=== PATIENT | female | born 1955 | race Caucasian/White ===

== ENCOUNTER 2022-07-25 08:10 | Outpatient (REF) | payer MEDICARE, SELFPAY ==
[2022-07-25 11:23] LABS: MANUAL DIFF FLAG NO
[2022-07-25 11:40] LABS: Basophils Absolute Auto 0.1 X10*3/uL (0.0-0.2); Eosinophils Absolute Auto 0.2 X10*3/uL (0.0-0.4); Eosinophils Percent Auto 3.6 % (0-4); Hematocrit 40.3 % (37.0-47.0); Hemoglobin 13.5 g/dl (12.0-16.0); Imm Gran Abs Auto 0.02 X10*3/uL (0.00-0.03); Imm Gran Pct Auto 0.3 % (0.0-0.4); Lymphocytes Absolute Auto 2.6 X10*3/uL (1.2-4.9); Lymphocytes Percent Auto 44.8 % (20-40); Mean Corpuscular HGB Conc 33.5 g/dl (31.0-35.0); Mean Corpuscular Hemoglobin 30.3 pg (27.0-33.0); Mean Corpuscular Volume 90.4 fL (80.0-98.0); Mean Platelet Volume 10.2 fL (9.4-12.3); Monocytes Absolute Auto 0.5 X10*3/uL (0.1-1.2); Monocytes Percent Auto 8.8 % (2-11); Neutrophils Absolute Auto 2.4 x10*3/uL (2.0-8.3); Neutrophils Percent Auto 41.5 % (45-73); Platelet Count 396 X10*3/uL (160-400); Red Blood Count 4.46 X10*6/uL (4.20-5.50); Red Cell Distribution Width 12.8 % (11.0-16.0); White Blood Count 5.8 X10*3/uL (4.8-10.8)
[2022-07-25 11:49] LABS: Appearance Urine Clear; Color Urine Yellow; Glucose Urine UA Negative (Negative); Leukocyte Esterase Urine Moderate (2+) (Negative); Nitrite Urine Negative (Negative); PH 5.5 (5.0-9.0); UMIC TRIGGER UA YES; Urine Blood Negative (Negative); Urine Ketones Negative (Negative); Urine Protein Negative (Neg-Trace)
[2022-07-25 11:58] LABS: Bacteria Urine None Seen (None Seen); Hyaline Casts Urine 0-2 /LPF (0-2); RBC Urine 0-2 /HPF (0-2); Squamous Epithelial Cell Urine 0-2 /HPF (0-2); WBC Urine 0-5 /HPF (0-5)
[2022-07-25 12:18] LABS: Alanine Aminotransferase 23 U/L (0-31); Albumin Level 4.2 g/dL (3.5-5.0); Alkaline Phosphatase 104 U/L (39-117); Anion Gap 10 (12-20); Aspartate Amino Transferase 19 U/L (5-31); Bilirubin Total 0.7 mg/dL (0.0-1.0); Blood Urea Nitrogen 12 mg/dL (9-16); Calcium 9.7 mg/dL (8.4-10.2); Carbon Dioxide 28 mmol/L (22-29); Chloride 107 mmol/L (96-108); Cholesterol 289 mg/dL; Estimated Glomerular Filt Rate > 60; Glucose Fasting 101 mg/dL (60-99); HDL Cholesterol 47 mg/dL; LDL Cholesterol Calculated 213 mg/dl; Potassium 4.8 mmol/L (3.3-5.1); Sodium 140 mmol/L (135-145); Triglycerides 145 mg/dL; Vitamin D 25-OH Total 36.1 ng/mL (>30)
== END 2022-07-25 08:11 | disposition home or self-care (01) ==
LOC: HO.HMGCLDS 08:10
PROVIDERS: PCP Internal Medicine; Visit Provider Internal Medicine
DX: Z00.00 Encounter for general adult medical examination without abnormal findings (principal); M85.80 Other specified disorders of bone density and structure, unspecified site; E55.9 Vitamin D deficiency, unspecified; E03.9 Hypothyroidism, unspecified
CPT/HCPCS: 36415; 80053; 80061; 81001; 82306; 85025

== ENCOUNTER 2022-11-21 07:55 | Outpatient (REF) | payer MEDICARE, SELFPAY ==
[2022-11-21 11:49] LABS: Cholesterol 286 mg/dL (<200); HDL Cholesterol 47 mg/dL (>40); LDL Cholesterol Calculated 208 mg/dL (<100); Triglycerides 156 mg/dL (<150)
== END 2022-11-21 07:56 | disposition home or self-care (01) ==
LOC: HO.HMGCLDS 07:55
PROVIDERS: PCP Internal Medicine; Visit Provider Internal Medicine
DX: E78.5 Hyperlipidemia, unspecified (principal)
CPT/HCPCS: 36415; 80061

== ENCOUNTER 2023-02-10 08:03 | Outpatient (REF) | payer MEDICARE, SELFPAY ==
[2023-02-10 11:47] LABS: Alanine Aminotransferase 19 U/L (0-31); Alkaline Phosphatase 96 U/L (39-117); Anion Gap 10 (12-20); Aspartate Amino Transferase 17 U/L (5-31); Bilirubin Total 0.5 mg/dL (0.0-1.0); Blood Urea Nitrogen 16 mg/dL (9-16); Calcium 9.3 mg/dL (8.4-10.2); Carbon Dioxide 27 mmol/L (22-29); Chloride 107 mmol/L (96-108); Cholesterol 210 mg/dL (<200); Estimated Glomerular Filt Rate > 60; Glucose Fasting 101 mg/dL (60-99); HDL Cholesterol 45 mg/dL (>40); LDL Cholesterol Calculated 137 mg/dL (<100); Potassium 4.2 mmol/L (3.3-5.1); Sodium 140 mmol/L (135-145); Total Protein 7.1 g/dL (6.5-8.0); Triglycerides 144 mg/dL (<150)
== END 2023-02-10 08:04 | disposition home or self-care (01) ==
LOC: HO.HMGCLDS 08:03
PROVIDERS: PCP Internal Medicine; Visit Provider Internal Medicine
DX: E78.5 Hyperlipidemia, unspecified (principal)
CPT/HCPCS: 36415; 80053; 80061

== ENCOUNTER 2023-06-05 13:25 | Outpatient (AMB) | payer MEDICARE, SELFPAY ==
[2023-06-05 13:29] VITALS: BP 130/90; PULSE 80; TEMP 36.4; O2SAT 98; BMI 29.9
--- NOTE | 2023-06-05 13:29 | AM.OFFWIN_ITS ---
Intake Vital Signs 06/05/23 13:29 Height 4 ft 10 in Weight 143 lb BMI 29.9 BP 130/90 H Blood Pressure Location Lt brachial Position Sitting Pulse 80 Pulse Source Pulse Oximeter Temp 97.5 F Temp Source Temporal Artery Scan Pulse Oximetry (%) 98 Oxygen Delivery Method Room Air Intake Visit Reasons: EP Bilateral Ear pain Intake Note: pt is here today for bilateral ear pain started 2 days ago Patient Tobacco Use Status: Never used Tobacco Allergies No Known Allergies Allergy (Verified 06/05/23 13:33) Medication List - Last Reconciled 06/05/23 by EDIL Dahl amoxicillin 875 mg PO BID 7 days thyroid (pork) ([place] Thyroid) 15 mg PO QAM thyroid (pork) ([place] Thyroid) 60 mg PO DAILY Do you need a note to return to daycare/school/sports/work: No HPI HPI Comments History of Present Illness Details See 7-year-old female presents today complaining of bilateral ear pain for the last 2 days. The patient wears hearing aids. It is also complaining of anterior cervical lymphadenopathy on the right denies any nasal congestion cough fever or shortness a breath PFSH Family History (Updated 07/25/22 @ 08:04 by Vaishnavi Stock MD) Mother Stroke, Onset Age: 60 Father Esophageal cancer Sister Biliary tract cancer Social History (Updated 07/25/22 @ 08:09 by Vaishnavi Stock MD) Household Members Other:: , 2 adult sons, 5 grandchildren, retired Housing: House Patient Tobacco Use Status: Never used Tobacco e-Cigarette/Vaping Use: Never Used service: No Current occupational status: retired Cognitive needs: No Hearing needs: Yes Vision needs: Yes Review of Systems Const All systems reviewed & are unremarkable except as noted in HPI and below Physical Exam Vital Signs: Last Vital Signs Temp 97.5 F 06/05/23 13:29 Pulse 80 06/05/23 13:29 BP 130/90 H 06/05/23 13:29 Pulse Ox 98 06/05/23 13:29 Oxygen Delivery Method Room Air 06/05/23 13:29 BMI result Body Mass Index 29.9 Const General: healthy appearing HEENT Head: Yes normal to inspection, Yes normocephalic and Yes atraumatic Ears: hearing grossly normal bilaterally, external ears normal, TM normal on the right, EAC's normal and TM abnormal bulging and erythematous General nose exam: Normal external nose present Face and sinus: Yes normal facial exam Throat: Yes posterior oropharynx normal Resp Auscultation: clear to auscultation bilaterally Cardio Rate: regular rate Rhythm: regular rhythm Assessment & Plan Assessment & Plan (1) Otitis media, left: Code(s): H66.92 - Otitis media, unspecified, left ear Plan: The patient will be on antibiotic. There is no restriction to the use of her hearing aids Plan See plan Medications: New amoxicillin 875 mg PO BID 14 tabs 0RF 7 days Coding Level of Care Code Est Pt Level 3 (39954) Diagnoses Otitis media, left H66.92
== END 2023-06-05 14:17 | disposition home or self-care (01) ==
PROVIDERS: PCP Internal Medicine; Visit Provider Physician Assistant Medical
DX: H66.92 Otitis media, unspecified, left ear (principal)
CPT/HCPCS: 99213

== ENCOUNTER 2024-08-30 13:47 | Outpatient (AMB) | payer MEDICARE, SELFPAY ==
--- NOTE | 2024-08-30 13:55 | A.OFFPC_ITS ---
Vital Signs 08/30/24 14:00 Height 4 ft 10 in Weight 136 lb 4 oz BMI 28.5 BP 132/70 Blood Pressure Location Rt brachial Position Sitting Pulse 73 Pulse Source Pulse Oximeter Temp 98.8 F Temp Source Temporal Artery Scan Pulse Oximetry (%) 99 Oxygen Delivery Method Room Air Intake Visit Reasons: Vaishnavi Biswas Intake Note: Aretha presents in the office today to transfer care and establish with new PCP. Allergies No Known Allergies Allergy (Verified 08/30/24 13:57) Tobacco use date assessed: 08/30/24 Dental Screening Dental Screen Date: 08/30/24 Did you have a dental visit in the last 12 months?: Yes Did you have a dental problem in the last 6 months where you did not have access to dental care?: No Was dental information given to patient?: Patient has dentist HPI HPI Comments History of Present Illness Details This is a 68-year-old female with a past medical history of hyperlipidemia, vitamin-D deficiency, osteopenia, hypothyroidism and impaired fasting glucose presenting to establish care. She endorses left ear pain for the past couple of days though it is better today. Her hearing sounded a little muffled, but this is normal today. She has had ear infections in the past. Denies sinus pain, fevers, chills or dizziness. Hypothyroidism-currently followed at [facility], but they are switching to [facility] and charging over 300 dollars per year to be seen 1 time. She is on Tabernash thyroid 60 mg daily. She feels well on this. Denies symptoms of hypothyroidism. Vitamin-D deficiency, osteopenia-previously followed by [facility], Dr. Delgadillo. He has retired. He had recommended medication for osteopenia, but the patient continues to decline this. She is not currently on multivitamin, calcium or vitamin-D. Hyperlipidemia-no current medications. Due for labs. Denies chest pain or shortness of breath. She is a nonsmoker. She sees [facility] every 1 to 1-1/2 years for skin exams. She declines further OBGYN exams and mammogram unless symptoms arise. Patient had a colonoscopy in 2015 and is due to repeat it in 2025. She declines vaccinations. ROS: Constitutional: No unexplained weight loss, fever, chills, fatigue or night sweats. Eyes: No vision changes, blurry vision, double vision, eye pain, eye redness, eye discharge. ENT: No hearing loss, sneezing, congestion, runny nose or sore throat. see HPI Respiratory: No shortness of breath, cough or sputum production. Cardiovascular: No chest pain, chest pressure or chest discomfort. No palpitations or pedal edema. Gastrointestinal: No anorexia, nausea, vomiting or diarrhea. No abdominal pain or blood in stool. Genitourinary: No dysuria, hematuria, urinary frequency. Neurologic: No headache, dizziness, syncope, unilateral weakness, ataxia, numbness or tingling in the extremities. Musculoskeletal: No muscle pain, back pain, joint pain or swelling. Hematologic/Lymphatics: No bleeding or bruising. No painful lymph nodes. Skin: No rash or itching. Endocrine: No cold or heat intolerance. No polyuria or polydipsia. Psychiatric: No depression or anxiety. No SI/HI. Physical exam: Constitutional: Alert, in no distress. Head: Normocephalic. Eyes: Pupils are equal, round and reactive to light. Extraocular muscles intact. Ear, Nose and Throat: Right tympanic membrane jonas and pearly. Left tympanic membrane moderately erythematous and bulging. Canals clear. Normal nasal mucosa. No nasal discharge. No oral lesions. Neck: Supple, Full range of motion. No lymphadenopathy. No palpable thyroid masses. Respiratory: Clear to auscultation. Cardiovascular: S1 S2 regular. No murmurs. No carotid bruits. Gastrointestinal: Abdomen soft, non-tender, non-distended. Normal bowel sounds. No palpable masses. Neurologic: No focal neurological deficits. Symmetric patellar reflexes. Moves all extremities spontaneously. Sensation intact bilaterally. Skin: No rashes Musculoskeletal: No gross deformities. Normal range of motion. Extremities: Warm and well perfused. No clubbing, cyanosis or edema. Intact. peripheral pulses bilaterally. Psychiatric: Normal mood and affect [facility] Medical History (Updated 08/30/24 @ 14:42 by EDIL Hall) Routine physical examination Routine eye exam IFG (impaired fasting glucose) Family History Mother Stroke, Onset Age: 60 Father Esophageal cancer Sister Biliary tract cancer Social History (Updated 08/30/24 @ 14:00 by Alejandrina Carr MA) Household Members Other:: , 2 adult sons, 5 grandchildren, retired Housing: House Alcohol intake: current Patient Tobacco Use Status: Never used Tobacco e-Cigarette/Vaping Use: Never Used Second Hand Smoke Exposure: No service: No Current occupational status: retired Cognitive needs: No Hearing needs: Yes Vision needs: Yes Questionnaire PHQ-9 Over the last 2 weeks, how often have you been bothered by any of the following problems? 1. Little interest or pleasure in doing things: not at all 2. Feeling down, depressed, or hopeless: not at all 3. Trouble falling or staying asleep, or sleeping too much: not at all 4. Feeling tired or having little energy: not at all 5. Poor appetite or overeating: not at all 6. Feeling bad about yourself - or that you are a failure or have let yourself or your family down: not at all 7. Trouble concentrating on things, such as reading the newspaper or watching television: not at all 8. Moving or speaking so slowly that other people could have noticed. Or the opposite - being so fidgety or restless that you have been moving around a lot more than usual: not at all 9. Thoughts that you would be better off or of hurting yourself in some way: not at all Total score: 0 Depression Screening Interpretation: Negative Depression Screening Done: Yes 84023 - PHQ-9 Billing: Yes Source: Developed by Drs. Elias Nava, Rita Ortiz, Robbie Iglesias and colleagues, with an educational cristofer from [employer]. Thrive Questionnaire Date Thrive assessed: 08/30/24 I am a: Patient What is your living situation today?: I have a steady place to live Within the past 12 months, did the food you bought not last and you didn't have the money to get more?: Never true Within the past 12 months, did you worry whether your food would run out before you got money to buy more?: Never true Do you have trouble paying for medicines?: No Do you have trouble getting transportation to medical appointments?: No Do you have trouble paying your heating and electricity bill?: No Do you have trouble taking care of your child, family member or friend?: No Do you have trouble with day-to-day activities such as bathing, preparing meals, shopping, managing finances, etc.?: No Are you currently unemployed and looking for a job?: No Are you interested in more education?: No Please select the resources that you would like help with: None Currently or been in a relationship where the following occur: No concerns reported THRIVE Score: 0 AUDIT C Alcohol Use Questionnaire (AUDIT-C) 1. How often do you have a drink containing alcohol?: 2-4 times a month 2. How many drinks containing alcohol do you have on a typical day when you are drinking?: 1 or 2 3. How often do you have six or more drinks on one occasion?: Never Total Score: 2 ARIELA-7 AMB Questionnaire ARIELA-7 Date ARIELA - 7 assessed: 08/30/24 Feeling nervous, anxious, or on edge: 0 = Not at all Not being able to stop or control worryin = Not at all Worrying too much about different things: 0 = Not at all Trouble relaxin = Not at all Being so restless that it is hard to sit still: 0 = Not at all Becoming easily annoyed or irritable: 0 = Not at all Feeling afraid as if something awful might happen: 0 = Not at all Total ARIELA-7 score (0-4 normal; 5-9 mild; 10-14 moderate; 15-21 severe): 0 Source: Developed by Drs. Elias Nava, Rita Ortiz, Robbie Iglesias and colleagues, with an educational cristofer from [employer]. ARIELA-7 Assessment Billing ARIELA-7 Assessment Tool: ARIELA-7 Assessment 01823 Physical exam (Primary Care) Vital Signs: Last Vital Signs Temp 98.8 F 08/30/24 14:00 Pulse 73 08/30/24 14:00 BP 132/70 08/30/24 14:00 Pulse Ox 99 08/30/24 14:00 Oxygen Delivery Method Room Air 08/30/24 14:00 BMI result Body Mass Index 28.5 Tobacco/Smoking Status: Tobacco use Status Tobacco use date assessed 08/30/24 08/30/24 14:02 Patient Tobacco Use Status Never used Tobacco 08/30/24 14:00 e-Cigarette/Vaping Use Never Used 08/30/24 14:00 PHQ-9: PHQ-9 Score PHQ-9: Total score 0 08/30/24 13:57 Depression Screening Interpretation: Negative Thrive Assessment: Date of Thrive Assessment Date Thrive assessed 08/30/24 08/30/24 13:57 Currently or been in a relationship where the following occur: No concerns repor abby Coding Level of Care Code Est Pt Level 4 (52012) Complex EM visit Add On G2211 Diagnoses IFG (impaired fasting glucose) R73.01 Hyperlipidemia E78.5 Vitamin D deficiency E55.9 Hypothyroidism E03.9 Osteopenia M85.80 Otitis media, left H66.92 Additional Codes ARIELA-7 Assessment Billing - ARIELA-7 Assessment Tool: ARIELA-7 Assessment 67064 ([id number]) PHQ-9 - 74594 - PHQ-9 Billing: Yes ([id number]) Assessment & Plan Assessment & Plan (1) IFG (impaired fasting glucose): Code(s): R73.01 - Impaired fasting glucose Category: Medical Plan: Check hemoglobin A1c. (2) Hyperlipidemia: Code(s): E78.5 - Hyperlipidemia, unspecified Category: Medical Plan: Check lipid profile. Increasing fiber, Mediterranean diet and regular exercise recommended. She is walking regularly and very active babysitting grandchildren. (3) Vitamin D deficiency: Code(s): E55.9 - Vitamin D deficiency, unspecified Category: Medical Plan: Check vitamin-D level. Not currently on supplementation. (4) Hypothyroidism: Code(s): E03.9 - Hypothyroidism, unspecified Category: Medical Plan: She did not need a refill on Tab[place] thyroid, but she will contact me when she does. TSH ordered. Recommended annual TSH and thyroid exam. (5) Osteopenia: Comment: DEXA by assistant professor of english Code(s): M85.80 - Other specified disorders of bone density and structure, unspecified site Category: Medical Plan: Bone density exam ordered. Continue weight-bearing exercise and avoidance of tobacco products. (6) Otitis media, left: Code(s): H66.92 - Otitis media, unspecified, left ear Category: Medical Plan: Treat with Augmentin 1 pill twice daily for 10 days. Side effects and administration reviewed. Take with food and have yogurt or probiotics. Call if symptoms do not resolve. Plan Schedule annual exam in 1 year. Orders: Orders Hemoglobin A1c Today R73.01 - Impaired fasting glucose, Z00.00 - Encounter for general adult medical examination without abnormal findings, Z01.00 - Encounter for examination of eyes and vision without abnormal findings XR DEXA axial skeleton Today M85.80 - Other specified disorders of bone density and structure, unspecified site Vitamin D 25-OH (D2 and D3) Today M85.80 - Other specified disorders of bone density and structure, unspecified site, Z00.00 - Encounter for general adult medical examination without abnormal findings, Z01.00 - Encounter for examination of eyes and vision without abnormal findings TSH reflex Free T4 Today Z00.00 - Encounter for general adult medical examination without abnormal findings Lipid Panel Today E78.5 - Hyperlipidemia, unspecified, Z00.00 - Encounter for general adult medical examination without abnormal findings, Z01.00 - Encounter for examination of eyes and vision without abnormal findings Complete Blood Count no Diff Today Z00.00 - Encounter for general adult medical examination without abnormal findings Comprehensive Met. Panel Today Z00.00 - Encounter for general adult medical examination without abnormal findings Medications: New amoxicillin-pot clavulanate 875-125 mg 1 tab PO Q12H 20 tabs 0RF
[2024-08-30 14:00] VITALS: BP 132/70; PULSE 73; TEMP 37.1; O2SAT 99; BMI 28.5
--- OUTSIDE RECORDS SUMMARY | 2024-08-30 15:26 | XMS_ITS | Patient Health Record ---
Author Organization [facility] Address [address] [place] [id number] Care Team Providers Care Marine Consultant Name Role Phone Nia Balbuena NP Primary Care Provider Jennifer Aldridge Unavailable [phone] Reason For Referral No Information Medications Medication SIG (Take, Route, Frequency, Duration) Notes Start Date End Date Status [place] Thyroid 60 MG 1 tablet Orally Once a day Active Neurontin 300 MG 1 capsule Orally Onc e a day at night for 30 day(s) 09/14/2018 Not-Takin g Ibuprofen 800 MG 1 tablet Orally Thre e times a day for 30 day(s) 09/14/2018 Not-Taking Social History Tobacco Use: Social History Observation Description Date Details (start date - stop date) Never Smoker NA - NA Tobacco Use/Smoking Question Answer Notes Are you a: nonsmoker Additional Findings: Tobacco Non-User Current no n-smoker Alcohol Screen Question Answer Notes Did you have a drink containing alcohol in the p ast year? Yes Points 0 Interpretation Negative Tobacco use other than smoking: Question Answer Notes Are you an other tobacco user? No Problems Problem Type SNOMED Code ICD Code Onset Dates Problem Status W/U Status Risk Notes Problem Acquired hallux valgus ([id number]) Hallux valgus (acquired), right foot (M20.11) Active confirmed Plan Of Treatment Pending Test Test Name Order Date X ray : Foot, right 3V 09/29/2018 X ray : Foot, right 3V 10/06/2018 X ray : Foot, right 3V 10/16/2018 X ray : Foot, right 3V 11/06/2018 X ray : Foot, right 3V 07/21/2018 Insurance Providers Payer Name Payer Address Payer Phone Subscriber Number Group Number Insured Name Patient Relationship to Insured Coverage Start Date Coverage End Date [facility] [address] [place] [address] [id number] Aretha Ingram Self - patient is the insured Medical (General) History Medical History History ICD Code Thyroid disorder Measles Chicken pox Surgical History Surgery Date(Month/Year) 08/28/1979 01/27/1981 [place] Bunionectomy R 09/23/2018
== END 2024-08-30 14:34 | disposition home or self-care (01) ==
LOC: HO.HMCFM 13:48
PROVIDERS: PCP Internal Medicine; Visit Provider Physician Assistant Medical
DX: R73.01 Impaired fasting glucose (principal); E78.5 Hyperlipidemia, unspecified; E55.9 Vitamin D deficiency, unspecified; E03.9 Hypothyroidism, unspecified; M85.80 Other specified disorders of bone density and structure, unspecified site; H66.92 Otitis media, unspecified, left ear

== ENCOUNTER → 2024-08-30 13:47 | Outpatient (BNVA) | payer MEDICARE, SELFPAY | PROVIDERS: PCP Internal Medicine; Visit Provider Physician Assistant Medical | DX: R73.01 Impaired fasting glucose (principal); E78.5 Hyperlipidemia, unspecified; E55.9 Vitamin D deficiency, unspecified; E03.9 Hypothyroidism, unspecified; M85.80 Other specified disorders of bone density and structure, unspecified site; H66.92 Otitis media, unspecified, left ear | CPT/HCPCS: 96127; 99212 ==

== ENCOUNTER 2024-08-30 14:39 | Outpatient (REF) | payer MEDICARE, SELFPAY ==
[2024-08-30 17:51] LABS: Hemoglobin 13.6 g/dl (12.0-16.0); Mean Corpuscular HGB Conc 33.2 g/dl (31.0-35.0); Mean Corpuscular Hemoglobin 29.6 pg (27.0-33.0); Mean Corpuscular Volume 89.3 fL (80.0-98.0); Mean Platelet Volume 10.5 fL (9.4-12.3); Platelet Count 408 X10*3/uL (160-400); Red Blood Count 4.59 X10*6/uL (4.20-5.50); White Blood Count 7.9 X10*3/uL (4.8-10.8)
[2024-08-30 18:11] LABS: Alanine Aminotransferase 21 U/L (0-31); Albumin Level 4.5 g/dL (3.5-5.0); Alkaline Phosphatase 116 U/L (39-117); Anion Gap 13 (12-20); Aspartate Amino Transferase 25 U/L (5-31); Bilirubin Total 0.6 mg/dL (0.0-1.0); Blood Urea Nitrogen 16 mg/dL (9-16); Calcium 9.7 mg/dL (8.4-10.2); Carbon Dioxide 25 mmol/L (22-29); Chloride 107 mmol/L (96-108); Cholesterol 292 mg/dL (<200); Estimated Glomerular Filt Rate > 60; Glucose Random 95 mg/dL (60-115); HDL Cholesterol 53 mg/dL (>40); LDL Cholesterol Calculated 215 mg/dL (<100); Potassium 4.3 mmol/L (3.3-5.1); Sodium 141 mmol/L (135-145); Total Protein 7.6 g/dL (6.5-8.0); Triglycerides 120 mg/dL (<150)
[2024-08-30 18:18] LABS: TSH reflex Free T4 0.42 uIU/mL (0.32-4.0)
[2024-08-31 05:42] LABS: Estimated Average Glucose 108 mg/dL; Hemoglobin A1c % 5.4 % (<6.0); Total Hemoglobin (HGBA1C) 3569.8642 umol/L
[2024-09-04 16:07] LABS: Vitamin D 25-OH, D2 <4 ng/mL; Vitamin D 25-OH, D3 28 ng/mL; Vitamin D 25-OH, Total 28 ng/mL (30-100)
== END 2024-08-30 14:40 | disposition home or self-care (01) ==
LOC: HO.WFDLDS 14:39
PROVIDERS: Visit Provider Physician Assistant Medical
DX: Z00.00 Encounter for general adult medical examination without abnormal findings (principal); R73.01 Impaired fasting glucose; E78.5 Hyperlipidemia, unspecified; M85.80 Other specified disorders of bone density and structure, unspecified site
CPT/HCPCS: 36415; 80053; 80061; 82306; 83036; 84443; 85027